=== PATIENT | male | born 1985 | race Caucasian/White ===

== ENCOUNTER 2017-01-21 11:13 | Emergency (ER) | payer MEDICAID ==
[2017-01-21 11:45] VITALS: BP 139/80
[2017-01-21] MEDS ORDERED: Ibuprofen 600 MG Tab PO ONE (11:52)
[2017-01-21] MEDS ORDERED: Acetaminophen/HYDROcodone 325-5 MG Tab PO ONE (11:53)
[2017-01-21] MEDS ORDERED: Diphtheria,Pertussis(Acell),Tetanus Vaccine 0.5 ML SDV IM ONE (11:57)
--- NOTE | 2017-01-21 12:02 | EDM.PDOC ---
ED HPI GENERAL MEDICAL PROBLEM - General Chief Complaint: Lower Extremity Injury/Pain Stated Complaint: INJURED TOE ON RIGHT FOOT Time Seen by Provider: 01/21/17 11:50 Source of Information: Reports: Patient History Limitations: Reports: No Limitations - History of Present Illness INITIAL COMMENTS - FREE TEXT/NARRATIVE: Dejuan an otherwise healthy 31-year-old male who presents to the emergency department today with complaints of right great toe pain. Patient reports that he dropped a 20 pound piece of sound equipment on it last night. Patient arrives today with throbbing in his toe. He denies any other injuries, he is unsure of his last tetanus shot. Patient has not taken anything for pain prior to arrival here. Duration: Day(s): (1) Right Feet Pain Score (Numeric/FACES): 5 - Related Data Allergies Allergy/AdvReac Type Severity Reaction Status Date / Time No Known Allergies Allergy Verified 01/21/17 11:48 Home Meds: Home Meds NK [No Known Home Meds] 01/21/17 [History] Past Medical History - Past Health History Medical/Surgical History: Denies Medical/Surgical History Social & Family History - Tobacco Use Smoking Status *Q: Current Some Day Smoker Years of Tobacco use: 10 Packs/Tins Daily: 0.5 - Caffeine Use Caffeine Use: Reports: Soda - Recreational Drug Use Recreational Drug Use: No Review of Systems - Review of Systems Review Of Systems: ROS reveals no pertinent complaints other than HPI. ED EXAM, GENERAL - Physical Exam Exam: See Below Exam Limited By: No Limitations General Appearance: Alert, WD/WN, No Apparent Distress Head: Atraumatic Neck: Normal Inspection Respiratory/Chest: No Respiratory Distress Cardiovascular: Regular Rate, Rhythm Extremities: Normal Inspection Neurological: Alert, Oriented Skin Exam: Warm, Dry, Wound/Incision (Patient has what appears to be most of his nail lifted off of his right great toe with blood oozing from underneath the nail from the proximal aspect. There is no obvious deformity to the toe itself, there is no other wounds that I appreciate on exam. Capillary refill is intact, pain with any movement.), Other Course - Vital Signs Last Recorded V/S: Last Vital Signs Temp 36.0 C 01/21/17 11:44 Pulse 78 01/21/17 11:44 Resp 18 01/21/17 11:44 BP 139/80 01/21/17 11:44 Pulse Ox 96 01/21/17 11:44 Daljit is an otherwise healthy 31 year old male who presents to the ED today with c/o right great toe pain, please refer to HPI and focused exam. Patient on exam after irrigation has cracked nail just distal to bed, no other open injuries identified, xray obtained and shows a fractured distal phalanx, relatively non-displaced, mutiple fractures consistent with crush injury. Will treat as an open fracture and leave nail bed in place for protection. If open underneath, wound is now old to suture. Toe cleaned well, bacitracin applied to nailbed, dressing applied, amber taped to toe. Patient placed in post op shoe and given crutches for stability, instructed on wound care and to keep weight off of foot. ORthopedic f/u requested for Sunday this week. Will start patient on Keflex for infection prophylaxis, ibuprofen for pain, [place] for severe pain, reasons to return discussed, patient agreeable and discharged in stable condition. - Orders/Labs/Meds Orders: Active Orders 24 hr Category Date Time Status Vaccines to be Administered [RC] PER UNIT ROUTINE Care 01/21/17 11:57 Active Toes Great Toe Rt T5 [CR] Stat Exams 01/21/17 11:53 Taken Meds: Medications Discontinued Medications Generic Name Dose Route Start Last Admin Trade Name Kilo PRN Reason Stop Dose Admin Hydrocodone Bitart/Acetaminophen 2 tab 01/21/17 11:53 01/21/17 12:15 [place] 325-5 Mg PO 01/21/17 11:54 2 tab ONETIME ONE Administration Bacitracin 1 dose 01/21/17 12:48 01/21/17 12:58 Bacitracin Oint 1 Gm TOP 01/21/17 12:49 1 dose ONETIME ONE Administration Diphtheria/Tetanus/Acell Pertussis 0.5 ml 01/21/17 11:57 01/21/17 12:15 Adacel IM 01/21/17 11:58 0.5 ml .ONCE ONE Administration Ibuprofen 600 mg 01/21/17 11:52 01/21/17 12:14 Motrin PO 01/21/17 11:53 600 mg ONETIME ONE Administration Departure - Departure Time of Disposition: 13:15 Disposition: Home, Self-Care 01 Condition: Good Clinical Impression: Toe fracture, right Qualifiers: Encounter type: initial encounter Toe: great toe Fracture type: open Phalanx: distal Fracture alignment: nondisplaced Qualified Code(s): S92.424B - Nondisplaced fracture of distal phalanx of right great toe, initial encounter for open fracture - Discharge Information Instructions: Crutch Use, [id number], Toe Fracture, [id number], Crush Injury, Fingers or Toes, [id number] Referrals: PCP,None [Primary Care Provider] - Forms: ED Department Discharge Additional Instructions: Daljit, Keep current dressing on for 24 hours, remove after that and re-dress with bacitracin and dressing to keep covered. The ortho clinic will be calling you for follow up Take antibiotics as prescribed. You should be taking Ibuprofen 600 mg every 6 hours for pain and swelling. Take [place] as needed for severe pain, this is a narcotic do not drive if you take it. Keep toe amber taped to next toe for support Return with any signs of infection such as redness/increased warmth/fever/ chills. - My Orders Last 24 Hours: My Active Orders 01/21/17 11:53 Toes Great Toe Rt T5 [CR] Stat 01/21/17 11:57 Vaccines to be Administered [RC] PER UNIT ROUTINE - Assessment/Plan Last 24 Hours: My Active Orders 01/21/17 11:53 Toes Great Toe Rt T5 [CR] Stat 01/21/17 11:57 Vaccines to be Administered [RC] PER UNIT ROUTINE
[2017-01-21] MEDS ORDERED: Bacitracin Oint 1 GM U/D Packet TOP ONE (12:48)
--- NOTE | 2017-01-22 10:38 | CR ---
Toes Great Toe Rt T5 INDICATION: trauma FINDINGS: Acute, comminuted, mildly displaced fracture through the mid and distal aspect of the right great toe.
== END 2017-01-21 13:24 | disposition home or self-care (01) ==
LOC: JP.ED 11:13
DX: S92.424B Nondisplaced fracture of distal phalanx of right great toe, initial encounter for open fracture (principal); F17.210 Nicotine dependence, cigarettes, uncomplicated; Z23 Encounter for immunization; W20.8XXA Other cause of strike by thrown, projected or falling object, initial encounter
CPT/HCPCS: 73660; 90471; 90715; 99284; A9270

== ENCOUNTER 2017-04-29 08:25 | Emergency (ER) | payer MEDICAID ==
[2017-04-29 08:42] VITALS: BP 144/84
--- NOTE | 2017-04-29 09:04 | EDM.PDOC ---
ED HPI GENERAL MEDICAL PROBLEM - General Chief Complaint: Gastrointestinal Problem Stated Complaint: BLOOD IN STOOL FOR A FEW DAYS Time Seen by Provider: 04/29/17 08:49 Source of Information: Reports: Patient, RN Notes Reviewed History Limitations: Reports: No Limitations - History of Present Illness INITIAL COMMENTS - FREE TEXT/NARRATIVE: 31-year-old gentleman presents to emergency department today complaint of bright red blood stool, he states this is been ongoing for about a week he's never had this before the blood is usually a small amount on the tissue paper and in the stool as well, denies any other symptoms no history of inflammatory bowel disease or colon cancer - Related Data Allergies Allergy/AdvReac Type Severity Reaction Status Date / Time No Known Allergies Allergy Verified 01/21/17 11:48 Home Meds: Home Meds Cephalexin [Keflex] 500 mg PO Q6HR 01/25/17 [History] Hydrocodone/Acetaminophen [[place] 5-325] 1 tab PO Q4H PRN 01/25/17 [History] Ibuprofen 600 mg PO Q6H PRN 01/25/17 [History] Past Medical History Musculoskeletal History: Reports: Other (See Below) Other Musculoskeletal History: right great toe FX - Infectious Disease History Infectious Disease History: Reports: Chicken Pox Social & Family History - Tobacco Use Smoking Status *Q: Current Some Day Smoker Years of Tobacco use: 12 Packs/Tins Daily: 0.2 - Caffeine Use Caffeine Use: Reports: Coffee, Energy Drinks, Soda, Tea - Recreational Drug Use Recreational Drug Use: No ED ROS GENERAL - Review of Systems Review Of Systems: See Below Constitutional: Reports: No Symptoms Respiratory: Reports: No Symptoms Cardiovascular: Reports: No Symptoms GI/Abdominal: Reports: Bloody Stool : Reports: No Symptoms ED EXAM, GI/ABD - Physical Exam Exam: See Below Exam Limited By: No Limitations General Appearance: Alert, WD/WN, No Apparent Distress Respiratory/Chest: No Respiratory Distress, Lungs Clear, Normal Breath Sounds, No Accessory Muscle Use Cardiovascular: Regular Rate, Rhythm, No Murmur GI/Abdominal Exam: Soft, Non-Tender Rectal (Males) Exam: Normal Exam, Normal Rectal Tone, Prostate Normal, Hemorrhoids. No: Heme + Stool, Perirectal Abscess, Prostate Nodule, Rectal Fissure, Tenderness Course - Vital Signs Last Recorded V/S: Last Vital Signs Temp 96.8 F 04/29/17 08:41 Pulse 82 04/29/17 08:41 Resp 14 04/29/17 08:41 BP 144/84 H 04/29/17 08:41 Pulse Ox 82 L 04/29/17 08:41 - Orders/Labs/Meds Orders: Active Orders 24 hr Category Date Time Status BASIC METABOLIC PANEL,BMP [CHEM] Urgent Lab 04/29/17 09:01 Ordered Labs: Laboratory Tests 04/29/17 Range/Units 09:01 WBC 4.9 (4.5-11.0) K/uL RBC 5.50 (4.30-5.90) M/uL Hgb 17.6 H (12.0-15.0) g/dL Hct 51.5 (40.0-54.0) % MCV 94 (80-98) fL MCH 32 H (27-31) pg MCHC 34 (32-36) % Plt Count 171 (150-400) K/uL Neut % (Auto) 62 (36-66) % Lymph % (Auto) 26 (24-44) % Lyon % (Auto) 8 H (2-6) % Eos % (Auto) 3 (2-4) % Baso % (Auto) 1 (0-1) % Departure - Departure Time of Disposition: 09:37 Disposition: Home, Self-Care 01 Condition: Good Clinical Impression: Bloody stool - Discharge Information Referrals: PCP,None [Primary Care Provider] - Forms: ED Department Discharge Additional Instructions: Outpatient surgery we'll contact you with time for your colonoscopy please start the prep per directions 2 days prior all medications or [id number], call return emergency department worsening of symptoms - My Orders Last 24 Hours: My Active Orders 04/29/17 09:01 BASIC METABOLIC PANEL,BMP [CHEM] Urgent - Assessment/Plan Last 24 Hours: My Active Orders 04/29/17 09:01 BASIC METABOLIC PANEL,BMP [CHEM] Urgent Plan: Assessment Acuity = acute Site and laterality = blood in the stool Etiology = unclear etiology possible internal hemorrhoid contributing Manifestations = none Location of injury = Home Lab values = hemoglobin 17.6 while within normal limits, call blood was negative Plan Discuss case Dr. Enriquez general surgery he agreed to colonoscopy would be appropriate after discussing this with the patient were to try and set this up for May 07 incoordination with the outpatient surgery Patient was in agreement with the plan all questions were answered, they were instructed to return to the emergency department or call for worsening symptoms. This note was dictated using [employer] voice recognition software please call with any questions. Lower GI Endoscopy Procedure Procedure:: Reports: Rigid Proctoscopy (Anoscope) Performed By:: Maynor Officer Indications:: Reports: Other (Blood in the stool) Rectodigital Exam:: Reports: Normal Exam, Normal Rectal Tone, Normal Prostate Depth Reached (cm):: 5 Landmarks:: Reports: Light Source - Findings Rectal:: Reports: Normal Hemorrhoids:: Reports: Internal Internal Hemorrhoid Grade (1,2,3,4):: 1 Polyps (location):: Reports: None Mass (Location):: Reports: None Previous Colon Surgery (Location):: Reports: None Stenosis (Location):: Reports: None Complications:: Reports: None Cultures:: Reports: None
== END 2017-04-29 10:10 | disposition home or self-care (01) ==
LOC: JP.ED 08:25
DX: K92.1 Melena (principal); F17.210 Nicotine dependence, cigarettes, uncomplicated
CPT/HCPCS: 36415; 46600; 80048; 82272; 85025; 99284-25

== ENCOUNTER 2017-05-07 08:10 | Day surgery (SDC) | payer MEDICAID ==
[2017-05-07] MEDS ORDERED: Midazolam 1 MG/ML 2 ML SDV ONE (08:45)
[2017-05-07] MEDS ORDERED: Propofol 200 MG/20 ML SDV ONE ×3 (08:45→11:46)
[2017-05-07] MEDS ORDERED: Dextrose 5%-Lactated Ringers 1,000 ML IV SCH (08:45)
[2017-05-07] MEDS ORDERED: fentaNYL 100 MCG/2 ML SDV ONE (08:45)
[2017-05-07] MEDS ORDERED: Labetalol 20 MG/4 ML Syringe ONE (13:01)
[2017-05-07 13:48] VITALS: BP 124/67
--- NOTE | 2017-05-13 10:44 | OR ---
DATE OF PROCEDURE: 05/07/2017 PREOPERATIVE DIAGNOSIS: Rectal bleeding. POSTOPERATIVE DIAGNOSES: 1. Rectal bleeding secondary to excoriated hemorrhoids. 2. Single small sigmoid colon polyp (30 cm). OPERATIVE PROCEDURE: Flexible colonoscopy with polypectomy by snare technique ([id number]). ANESTHESIA: IV sedation. INDICATIONS FOR PROCEDURE: This is a 31-year-old presenting with some intermittent rectal bleeding. Per history, this would be most likely related to hemorrhoids that occurs generally after movement of his bowels and is very bright red. The plan is to proceed with a flexible colonoscopy with biopsies and/or polypectomy as indicated. Potential risks including bleeding and perforation were discussed, and the patient wishes to proceed. DETAILS OF PROCEDURE: The patient was taken to the operating room, placed in a left lateral decubitus position. IV sedation was administered, after which the initial digital rectal exam was performed and was unremarkable. Colonoscope was then passed into the rectum with retroflexion revealing quite excoriated hemorrhoids. These were predominantly internal hemorrhoids and would be amenable with banding should the patient have persistent bleeding . The scope was eventually passed to the level of the cecum. Prep was fair with there only being a small amount of liquid stool present. To that level, a single roughly 3 mm polyp was noted at 30 cm; however, there were no diverticula. No areas of colitis and no areas of additional polyps or signs of neoplasia. The polyp was encircled with snare and excised by means of cautery and retrieved and sent for histologic evaluation. Good hemostasis was noted at the polypectomy site. The scope was then withdrawn. The procedure was then concluded. Plan will be to call the patient regarding the timing of the repeat colonoscopy as this is an adenomatous polyp, which it appeared to be most likely. A repeat colonoscopy in 2 years would probably be warranted. If the patient continues to have significant bleeding, he would be a good candidate for hemorrhoid banding in the clinic setting and he is instructed to call should that be a continued issue. Benigno Enriquez MD /[id number]
== END 2017-05-07 13:57 | disposition home or self-care (01) ==
LOC: JP.SDS 08:10
PROVIDERS: ATTEND Surgery
DX: K63.5 Polyp of colon (principal); K64.8 Other hemorrhoids
CPT/HCPCS: 45385; 88305; J2250; J2704; J3010; J7042

== ENCOUNTER 2024-11-11 14:18 | Emergency (ER) | payer OTHER, MEDICAID ==
[2024-11-11 14:43] VITALS: BP 150/94
[2024-11-11] MEDS ORDERED: Naloxone 0.4 MG/ML SDV IVPUSH PRN (15:02)
[2024-11-11 15:09] VITALS: PULSE 83
[2024-11-11] MEDS: HYDROmorphone 1 MG/ML Syringe IVPUSH PRN (15:09)
[2024-11-11] MEDS: Ondansetron 4 MG/2 ML SDV IVPUSH ONE (15:10)
[2024-11-11] MEDS: Sodium Chloride 0.9% 1,000 ML IV SCH (15:15)
[2024-11-11 16:02] LABS: BASOPHILS ABSOLUTE AUTO 0.05 K/uL (0.00-0.10); BASOPHILS PERCENT AUTO 0.8 % (0.1-1.3); EOSINOPHILS ABSOLUTE AUTO 0.06 K/uL (0.00-0.40); EOSINOPHILS PERCENT AUTO 0.9 % (0.0-5.4); HEMATOCRIT 43.4 % (38.4-49.7); HEMOGLOBIN 14.5 g/dL (12.9-16.9); IMMATURE GRAN PERCENT AUTO 0.3 % (0.0-0.7); LYMPHOCYTES ABSOLUTE AUTO 1.59 K/uL (0.8-3.3); LYMPHOCYTES PERCENT AUTO 24.6 % (11.4-47.7); MEAN CORPUSCULAR HEMOGLOBIN 31.9 pg (31.6-35.5); MEAN CORPUSCULAR HGB CONC 33.4 g/dL (31.6-35.5); MEAN CORPUSCULAR VOLUME 95.4 fL (81.4-99.0); MONOCYTES ABSOLUTE AUTO 0.41 K/uL (0.20-0.90); MONOCYTES PERCENT AUTO 6.3 % (3.3-12.6); NEUTROPHILS ABSOLUTE AUTO 4.34 K/uL (1.0-7.6); NEUTROPHILS PERCENT AUTO 67.1 % (40.0-78.1); PLATELET COUNT,PLT 181 K/uL (130-375); RED BLOOD CELL COUNT 4.55 M/uL (4.14-5.76); WHITE BLOOD CELL COUNT,WBC 6.5 K/uL (3.2-11.0)
[2024-11-11 16:05] LABS: IMMATURE GRAN ABSOLUTE AUTO 0.02 K/uL (0.00-0.23)
[2024-11-11] MEDS: Cyclobenzaprine 10 MG Tab PO ONE (16:12)
[2024-11-11 16:17] LABS: ANION GAP 9.9 mmol/L (5.0-14.0); CALCIUM 9.3 mg/dL (8.5-10.1); CREATININE 0.8 mg/dL (0.8-1.3); EST CRCL DRUG DOSING (CG) 141.49 mL/min; POTASSIUM,K 3.6 mmol/L (3.6-5.2)
[2024-11-11] MEDS: Lidocaine 1% 20 ML MDV INJECT ONE (16:18)
[2024-11-11 16:21] LABS: PROTHROMBIN TIME 10.2 sec (9.2-10.6)
[2024-11-11] MEDS: Bacitracin Oint 1 GM U/D Packet TOP ONE (16:57)
== END 2024-11-11 17:46 | disposition home or self-care (01) ==
LOC: JP.ED 14:18
DX: S61.213A Laceration without foreign body of left middle finger without damage to nail, initial encounter (principal); S61.215A Laceration without foreign body of left ring finger without damage to nail, initial encounter; S39.012A Strain of muscle, fascia and tendon of lower back, initial encounter; F17.200 Nicotine dependence, unspecified, uncomplicated; Z86.16 Personal history of COVID-19; Z79.899 Other long term (current) drug therapy; R79.1 Abnormal coagulation profile; W45.8XXA Other foreign body or object entering through skin, initial encounter; Y99.0 Civilian activity done for income or pay
CPT/HCPCS: 12002; 36415; 73130-26-LT; 73130-LT; 80048; 85025; 85610; 96374; 96375; 99283-25; 99284; A9270-GY; J1171; J2405; J7030